=== PATIENT | male | born 1980 | race Hispanic/Latino ===

== ENCOUNTER 2023-12-11 07:49 | Outpatient (CLI) | payer BC | END 2023-12-11 07:50 | disposition home or self-care (01) | LOC: SCSMRI 07:49 | PROVIDERS: ATTEND Otolaryngology Otolaryngic Allergy | DX: D49.0 Neoplasm of unspecified behavior of digestive system (principal); R59.0 Localized enlarged lymph nodes | CPT/HCPCS: 70543 ==